=== PATIENT | female | born 1980 | race Caucasian/White ===

== ENCOUNTER 2023-02-22 15:21 | Emergency (ER) | payer BC ==
[~2023-02-22] VITALS: Ht 165.1 cm; Wt 60.3 kg
[2023-02-22] MEDS ORDERED: CEPH25SS PO (15:30)
[2023-02-22] MEDS ORDERED: ONDA4TAB6 PO ×2 (15:32→23:41)
[2023-02-22] MEDS ORDERED: IBUP-1022 PO (15:32)
[2023-02-22] MEDS ORDERED: MILKSUS3 PO (15:32)
[2023-02-22] MEDS ORDERED: KETOROLAC 30 MG/ML 1ML VIAL IV ONE (17:50)
[2023-02-22 19:10] LABS: BASO # 0.1 10^3/uL (0.0-0.2); BASO % 0.4 % (0.0-1.0); EOS # 0.1 10^3/uL (0.0-0.5); EOS % 0.9 % (0.0-3.0); HEMATOCRIT 36.4 % (36.0-47.0); HEMOGLOBIN 11.8 g/dl (12.0-15.5); LYMPH # 1.8 10^3/uL (1.5-5.0); LYMPH % 11.6 % (24.0-44.0); MEAN CORPUSCULAR HEMOGLOBIN 31.6 pg (27.0-33.0); MEAN CORPUSCULAR HGB CONC 32.4 g/dl (32.0-36.5); MEAN CORPUSCULAR VOLUME 97.3 fl (80.0-96.0); MONO # 1.5 10^3/uL (0.0-0.8); MONO % 9.6 % (2.0-8.0); NEUTROPHILS # 12.2 10^3/uL (1.5-8.5); NEUTROPHILS % 77.1 % (36.0-66.0); PLATELET COUNT, AUTOMATED 281 10^3/uL (150-450); RED BLOOD COUNT 3.74 10^6/uL (4.00-5.40); WHITE BLOOD COUNT 15.8 10^3/uL (4.0-10.0)
[2023-02-22] MEDS ORDERED: ISOVUE-370 76% 100ML VIAL As Ordered ONE (19:22)
[2023-02-22] MEDS ORDERED: ACETAMINOPHEN 500 MG TAB PO ONE (20:45)
[2023-02-22] MEDS ORDERED: MORPHINE 4 MG/ML 1ML VIAL IV ONE (20:55)
[2023-02-22] MEDS ORDERED: ONDANSETRON 4MG 2ML VIAL IV ONE (20:55)
[2023-02-22 21:09] LABS: GC DNA AMPLIFICATION NEGATIVE (NEGATIVE)
[2023-02-22] MEDS ORDERED: metroNIDAZOLE (FLAGYL) 500MG TABLET PO ONE (23:35)
[2023-02-22] MEDS ORDERED: BACTRIM 160MG/800MG DS TAB PO ONE (23:35)
[2023-02-22] MEDS ORDERED: NAPR-837 PO (23:41)
[2023-02-22] MEDS ORDERED: METR-265 PO (23:41)
[2023-02-22] MEDS ORDERED: BACT800T5 PO (23:41)
[2023-02-22 23:57] VITALS: BP 109/65; TEMP 99.2
[2023-02-23 00:02] VITALS: O2SAT 98
[2023-02-23] MEDS ORDERED: BACT800T5 PO (00:05)
[2023-02-23] MEDS ORDERED: NAPR-837 PO (00:05)
[2023-02-23] MEDS ORDERED: METR-265 PO (00:05)
[2023-02-23] MEDS ORDERED: ONDA4TAB6 PO (00:05)
== END 2023-02-23 00:01 | disposition home or self-care (01) ==
LOC: M ED 15:21
DX: T81.49XA Infection following a procedure, other surgical site, initial encounter (principal); N89.9 Noninflammatory disorder of vagina, unspecified; R50.9 Fever, unspecified; N83.8 Other noninflammatory disorders of ovary, fallopian tube and broad ligament; N80.9 Endometriosis, unspecified; F90.9 Attention-deficit hyperactivity disorder, unspecified type; Z90.710 Acquired absence of both cervix and uterus; Z79.899 Other long term (current) drug therapy; Z88.8 Allergy status to other drugs, medicaments and biological substances
CPT/HCPCS: 74177; 76856; 80047; 81001; 85025; 87040; 87210; 87661; 87810; 87850; 93976; 96374; 96375; 99284; J1885; J2405; Q9967